=== PATIENT | male | born 1970 | race Caucasian/White ===

== ENCOUNTER → 2017-01-31 | Outpatient (CLI) | payer SELFPAY ==
[~2017-01-31] MED LIST: ACETAMINOPHEN325 M1 PO; ASA CHILDREN'S81 MG PO; BACITRACIN15 G1 TP; BRILINTA90 MG PO; COREG DPS6.25 MG PO; HABITROL DPS21 MG TD; LEVAQUIN DPS500 MG PO; LIPITOR DPS40 MG PO; NITROSTAT0.4 MG SL; ZESTRIL DPS5 MG PO
== END | disposition home or self-care (01) ==
LOC: RAD.S 13:20
DX: R20.0 Anesthesia of skin (principal); M79.89 Other specified soft tissue disorders